=== PATIENT | female | born 1970 ===

== ENCOUNTER 2021-12-03 08:05 | Outpatient (CLI) | payer BC | END 2021-12-03 08:06 | disposition home or self-care (01) | LOC: CSHULT 08:05 | PROVIDERS: ATTEND Internal Medicine | DX: K86.1 Other chronic pancreatitis (principal); K21.9 Gastro-esophageal reflux disease without esophagitis; K76.0 Fatty (change of) liver, not elsewhere classified | CPT/HCPCS: 76700 ==